=== PATIENT | male | born 1940 | race Caucasian/White ===

== ENCOUNTER → 2024-04-06 10:20 | Outpatient (REF) | payer OTHER, SELFPAY | LOC: HWRCS 10:20 | PROVIDERS: ATTENDING PHYSICIAN Internal Medicine Cardiovascular Disease | DX: Z95.0 Presence of cardiac pacemaker (principal); I35.0 Nonrheumatic aortic (valve) stenosis | CPT/HCPCS: 93306 ==

== ENCOUNTER 2024-12-20 05:50 | Day surgery (SDC) | payer OTHER, SELFPAY ==
[2024-12-10 14:03] VITALS: BMI 26.3
[2024-12-10 14:38] LABS: Hematocrit 42.3 % (39.0-52.0); Hemoglobin 13.5 g/dL (13.0-18.0); Mean Corp Hgb Conc. 31.9 g/dL (33.0-37.0); Mean Corpuscular Volume 86.9 fL (80.0-94.0); Nucleated Red Blood Cells % 0 % (-); Platelet Count 165 10^3/uL (130-400); Red Cell Dist. Width 22.5 % (11.5-14.5)
[2024-12-10 15:00] LABS: ALT (SGPT) 23 U/L (0-50); AST (SGOT) 28 U/L (17-59); Albumin 4.7 g/dl (3.5-5.0); Alkaline Phosphatase 92 U/L (38-126); Blood Urea Nitrogen 21 mg/dl (9-20); Calcium 10.0 mg/dl (8.4-10.2); Carbon Dioxide 30 mmol/L (22-30); Chloride 105 mmol/L (98-107); Estimated Creatinine Clearance 56 ml/min; Glucose 93 mg/dl (70-99); Potassium 4.4 mmol/L (3.5-5.1); Sodium 139 mmol/L (135-145); Total Protein 7.8 g/dl (6.3-8.2); eGFR > 60.00
[2024-12-10 16:30] LABS: Anisocytosis 1+; Normal RBC Morphology No; Ovalocytes 1+
[2024-12-20 06:11] VITALS: BMI 24.4
[2024-12-20 06:32] VITALS: BP 150/69
[2024-12-20 06:52] VITALS: BP 150/69
[2024-12-20 08:28] VITALS: BP 152/77
--- NOTE | 2024-12-20 08:30 | ITS.CL.PACE ---
Director Advertising - Pacemaker Implant
Pacemaker Implant
Procedure Report:
Implantable Dual Chamber Pacemaker Generator Change:
Mr. Dunn is a very pleasant 84 years old gentleman with complete heart block status post PPM (07/17/2018), pacemker dependent and chronically elevated RV lead threshold and paroxysmal atrial fibrillation (on apixaban) with end of battery is here
for generator change.
Indications: Complete heart block
Date of the Procedure: 12/20/2024
Pre-Operative Diagnosis: Complete heart block
Post-Operative Diagnosis: Complete heart block
Procedure Performed: DUAL CHAMBER PACEMAKER GENERATOR CHANGE
Performing Physician:
Ellyn Floyd MD
Anesthesia:
See anesthesia records
Detailed Description of the Procedure:
The patient was identified using hospital identification and informed consent obtained for the procedure. The risks were explained including, but not limited to: Bleeding, infection, arrhythmia, stroke, vascular/cardiac/lung puncture, surgery,
pacemaker dependency/device malfunction. All questions were answered.
The patient was brought to the electrophysiology laboratory in stable condition in fasting state. Continuous electrocardiographic and hemodynamic monitoring was initiated.
The initial rhythm was ventricular paced rhythm.
The procedure site was meticulously prepared with surgical scrub and allowed to dry with no pooling. Sterile draping was applied to cover the procedure site.
The left infraclavicular region was prepped and draped in the usual sterile fashion. Local anesthesia was administered subcutaneously using 1% lidocaine / bupivacaine. The incision was made on the previous incision site. The old PPM generator was
accessed and the adhesions were removed with care to avoid damage to the leads. The PPM capsule was cut to access the generator. The old device was freed from the underlying fascia. It was removed from the body. The Weitlaner retractor was placed in
the incision and used as access to skin for unipolar pacing.
The RA pacing lead was first removed and plugged into the new generator. Then the RV lead was removed and placed in the respective locations in the newer generator.
The old pocket and capsule was modified and the excessive scar was removed.
Tthe device with leads were placed in the modified pocket. There was excellent sensing, pacing, and impedance from the leads.�Bovie cautery, and antibiotics were used.
The RV lead had high threshold and was known. The PPM generator was appropriately programmed.
The wound was irrigated thoroughly with antibiotic solution and closed in 3 layers using 2-0 VLoc sutures and two layers of 4-0 Biosyn sutures. Steri-Strips and a bandage were applied externally.�
Procedure End:
The procedure was tolerated well. A pressure bandage was applied to the incision area.
Estimated Blood loss:
5 cc
Fluoro time:
0 min
Specimens Removed:
No cultures and no specimens were obtained. No intraoperative pathology was identified.
Urine output:
None
Packs / Drains/ Tubes:
None
Instrument / Sponge Count Correct:
Yes
Complications of the Procedure:
None
Condition of Patient at Time of Transfer:
Hemodynamically stable with no neurological or vascular compromise.
Device information:�
Generator: [employer]; Model: W1DR01; Serial # [id number]�
Atrial Lead: [employer]; Model: 5086MRI-52; Serial # [id number]
Measured data in the right atrium was sensing of 3.5 mV with an impedance of 399 ohms and threshold of 0.75 V at 0.4ms.
RV Lead: [employer]; Model: 5086MRI-58; Serial # [id number]
Measured data on the RV lead had impedance of 380 ohms and threshold of 1.5 V at 0.7ms.
PROGRAMMING PARAMETERS:�
Jerman parameter settings were DDD 50 - 130 bpm
Summary:
Successful generator change of dual chamber pacemaker.
Results/Recommendations:
1. Please provide patient with adequate pain control�
Instructions to be given to patient:�
- Please follow up with [facility] at [address] [place] [address] ([phone]) to get your wound checked within 7 days of your discharge.
- Do not wet incision site until after it is evaluated at cardiology clinic. No showers until then. Sponge baths are OK.�
- Allow 'steri strips' to fall off on their own�
- Do not lift left elbow above shoulder, particularly with sudden jerking movements, for 1 month�
- Do not lift anything weighing more than 5 pounds with the left arm for 1 month�
- If you notice any fevers, shortness of breath, lightheadedness, chest pain, or worsening swelling in the wound site, please contact the arrhythmia clinic, contact your environmental studies department chair, or present to the hospital for evaluation.�
Ellyn Floyd MD
Electrophysiology
[2024-12-20 08:43] VITALS: BP 153/81
[2024-12-20 08:58] VITALS: BP 145/67
== END 2024-12-20 09:30 | disposition home or self-care (01) ==
LOC: CATH 05:50
PROVIDERS: ATTENDING PHYSICIAN Internal Medicine Cardiovascular Disease; OTHER PHYSICIAN Internal Medicine Cardiovascular Disease
DX: Z45.010 Encounter for checking and testing of cardiac pacemaker pulse generator [battery] (principal); I44.2 Atrioventricular block, complete; D50.9 Iron deficiency anemia, unspecified; E78.5 Hyperlipidemia, unspecified; G89.29 Other chronic pain; M54.50 Low back pain, unspecified; I35.1 Nonrheumatic aortic (valve) insufficiency; I48.0 Paroxysmal atrial fibrillation; Z72.0 Tobacco use; Z79.01 Long term (current) use of anticoagulants; Z79.899 Other long term (current) drug therapy; Z86.73 Personal history of transient ischemic attack (TIA), and cerebral infarction without residual deficits; Z88.2 Allergy status to sulfonamides; Z88.5 Allergy status to narcotic agent
CPT/HCPCS: 33228; 36415; 80053; 85025; 93005; C1785